=== PATIENT | female | born 1945 | race Two or more races ===

== ENCOUNTER 2022-07-12 14:52 | Emergency (ER) | payer MEDICARE, MEDICAID ==
[~2022-07-12] VITALS: Ht 157.5 cm; Wt 74.0 kg
[2022-07-12 15:03] VITALS: BP 150/75
[2022-07-12] MEDS ORDERED: ACET-1158 PO (19:38)
[2022-07-12] MEDS ORDERED: ONDANSETRON ODT 4 MG TAB PO ONE (19:45)
[2022-07-12] MEDS ORDERED: HYDROcodone-ACET 5/325MG TAB PO ONE (19:45)
== END 2022-07-12 20:06 | disposition home or self-care (01) ==
LOC: ER 14:52
DX: S20.01XA Contusion of right breast, initial encounter (principal); W18.09XA Striking against other object with subsequent fall, initial encounter; Y93.89 Activity, other specified; Y92.89 Other specified places as the place of occurrence of the external cause; Y99.8 Other external cause status
CPT/HCPCS: 71250; 99284; Q0162

== ENCOUNTER 2022-07-23 22:02 | Emergency (ER) | payer MEDICARE, MEDICAID ==
[~2022-07-23] VITALS: Ht 61 cm; Wt 74.6 kg
[~2022-07-23 22:02] MED LIST: ACET-1158 PO
[2022-07-23 23:26] LABS: Eosinophils # (auto) 0.2 10 ^3/uL (0-0.8); Hemoglobin 11.1 g/dL (12.2-16.2)
[2022-07-23 23:28] LABS: Basophils # (auto) 0 10 ^3/uL (0-0.2); Basophils % (auto) 0.5 % (0.0-2.0); Eosinophils % (auto) 1.7 % (0.0-7.0); Hematocrit 33.5 % (36.0-46.0); Lymphocytes # (auto) 1.6 10 ^3/uL (0.4-5.4); Lymphocytes % (auto) 16.2 % (10.0-50.0); Mean Corpuscular Hemoglobin 24.8 pg (28.0-32.0); Mean Corpuscular Hgb Conc. 33.1 g/dL (32.0-36.0); Mean Corpuscular Volume 74.8 fL (80.0-100.0); Monocytes # (auto) 0.5 10 ^3/uL (0-1.3); Monocytes % (auto) 5.5 % (0.0-12.0); Neutrophils # (auto) 7.5 10 ^3/uL (1.6-8.6); Neutrophils % (auto) 76.1 % (37.0-80.0); Red Blood Cells 4.47 10^6/uL (4.0-5.20); Red Cell Distribution Width 18.9 % (11.8-14.3); White Blood Cell 9.8 10^3/uL (4.4-10.8)
[2022-07-23 23:33] LABS: Albumin 3.3 g/dL (3.4-5.0); Calcium 8.6 mg/dL (8.5-10.1); Potassium 3.1 mmol/L (3.5-5.1)
[2022-07-23 23:37] LABS: Bilirubin, Total 0.1 mg/dL (0.2-1.0); Total Protein 7.5 g/dL (6.4-8.2)
[2022-07-24 04:40] VITALS: BP 139/61
[2022-07-24 06:47] LABS: Urine Bacteria NONE SEEN /hpf (None Seen); Urine Blood Negative /uL (Negative); Urine Hyaline Cast FEW /lpf (0 - 2); Urine Mucus FEW (None Seen); Urine Specific Gravity 1.022 (1.001-1.035); Urine WBC 5 /hpf (0 - 5)
[2022-07-24] MEDS ORDERED: POTASSIUM EFFERVESENT TAB 25 MEQ PO ONE (07:00)
== END 2022-07-24 06:57 | disposition left against medical advice (07) ==
LOC: ER 22:02
DX: D64.9 Anemia, unspecified (principal); E87.6 Hypokalemia; E86.0 Dehydration; R79.89 Other specified abnormal findings of blood chemistry; Z90.710 Acquired absence of both cervix and uterus
CPT/HCPCS: 36415; 74176; 80053; 81001; 85025

== ENCOUNTER → 2023-01-07 | Emergency (ER) | payer MEDICARE, MEDICAID ==
[~2023-01-07] VITALS: Ht 160 cm; Wt 73.9 kg
[~2023-01-07] MED LIST changes: -ACET-1158 PO; +ACET500T58 PO; +CEPH500T PO; +CEPHALEXIN 250 MG CAP PO ONE
[2023-01-07 20:48] LABS: Urine Bacteria NONE SEEN /hpf (None Seen); Urine Blood Negative /uL (Negative); Urine Clarity Clear (Clear); Urine Color Colorless (Yellow); Urine Mucus FEW (None Seen); Urine Protein, UAD Negative (Negative); Urine Urobilinogen Normal (Negative); Urine WBC 3 /hpf (0 - 5)
[2023-01-07 21:11] VITALS: BP 160/91; PULSE 77; RESP 16; O2SAT 97
[2023-01-07 22:21] LABS: Basophils # (auto) 0.1 10 ^3/uL (0-0.2); Eosinophils # (auto) 0.4 10 ^3/uL (0-0.8); Lymphocytes # (auto) 2.1 10 ^3/uL (0.4-5.4); Monocytes # (auto) 0.6 10 ^3/uL (0-1.3); White Blood Cell 8.1 10^3/uL (4.4-10.8)
[2023-01-07 22:22] LABS: Basophils % (auto) 1.1 % (0.0-2.0); Eosinophils % (auto) 4.4 % (0.0-7.0); Hematocrit 34.1 % (36.0-46.0); Hemoglobin 10.8 g/dL (12.2-16.2); Lymphocytes % (auto) 26.5 % (10.0-50.0); Mean Corpuscular Hemoglobin 24.7 pg (28.0-32.0); Mean Corpuscular Hgb Conc. 31.8 g/dL (32.0-36.0); Mean Corpuscular Volume 77.6 fL (80.0-100.0); Monocytes % (auto) 7.1 % (0.0-12.0); Neutrophils # (auto) 4.9 10 ^3/uL (1.6-8.6); Neutrophils % (auto) 60.9 % (37.0-80.0); Red Blood Cells 4.39 10^6/uL (4.0-5.20); Red Cell Distribution Width 19.6 % (11.8-14.3)
[2023-01-07 22:23] LABS: Alanine Aminotransferase 15 U/L (7-40); Albumin 4.1 g/dL (3.2-4.8); Alkaline Phosphatase 101 U/L (46-116); Anion Gap 5.9 (5-15); Aspartate Aminotransferase 19 U/L (13-40); BUN/Creatinine Ratio 21.3 (10.0-20.0); Bilirubin, Total 0.2 mg/dL (0.2-1.0); Blood Urea Nitrogen 13 mg/dL (9-23); Carbon Dioxide 28.1 mmol/L (20-30); Chloride 107 mmol/L (98-107); Glucose 93 mg/dL (74-106); Potassium 3.4 mmol/L (3.5-5.1); Sodium 141 mmol/L (136-145); Total Protein 6.9 g/dL (5.7-8.2)
== END | disposition left against medical advice (07) ==
LOC: ER 20:27
DX: R30.0 Dysuria (principal); M25.562 Pain in left knee; Z90.710 Acquired absence of both cervix and uterus
CPT/HCPCS: 36415; 73560; 74176; 80053; 81001; 85025

== ENCOUNTER 2024-11-08 16:21 | Inpatient (IN) | payer MEDICARE, MEDICAID ==
[~2024-11-08] VITALS: Ht 157.5 cm; Wt 64.5 kg
[~2024-11-08 16:21] MED LIST changes: -CEPHALEXIN 250 MG CAP PO ONE
--- NOTE | 2024-11-08 18:14 | ED.PDOC ---
History of Present Illness HPI Comments 79-year-old female with a history of cardiac arrhythmia brought in by self complaining of nausea, vomiting, fever and lower abdominal pain for the last 3 days, associated with dysuria. She denies diarrhea or constipation. At triage, patient was noted to have temperature 100.7 and heart rate 118. Chief Complaint: Nausea/Vomiting Time Seen by MD: 16:23 Allergies: Coded Allergies: NO KNOWN ALLERGIES (Unverified , 07/12/22) Home Meds No Active Prescriptions or Reported Meds Information Source: Patient Mode of Arrival: Ambulatory Past Medical History Past Medical History (Other): Cardiac arrhythmia Surgical History: Hernia Repair, Hysterectomy Surgical History (Other): Hip replacement, back, neck and shoulder surgery EMBOSSOGRAPH OPERATOR History: No Pertinent EMBOSSOGRAPH OPERATOR History Family History Family History: Reviewed,noncontributory to illness Social History Smoker: Non-Smoker Alcohol: Denies ETOH Use Drugs: Denies Drug Use Lives In: Home All Other Systems: Reviewed and Negative (Comprehensive systems review obtained and negative except for what is stated in the HPI.) Physical Exam General Appearance: Mild Distress HEENT: Other (Pupils and face symmetric. Dry mucous membranes.) Neck: Full Range of Motion, Normal Inspection Respiratory: Lungs Clear, No Accessory Muscle Use, No Respiratory Distress, Normal Breath Sounds Cardiovascular: No Edema, No JVD, Tachycardia Breast Exam: Deferred Gastrointestinal: RLQ, Soft, Suprapubic, Tenderness Genitalia: Deferred Pelvic: Deferred Rectal: Deferred Extremities: Normal inspection, Normal range of motion, Non-tender, No pedal edema Neurologic: Alert (Oriented x4), Normal Affect, Normal Mood, Other (Ambulatory) Cerebellar Function: NOT DONE Reflexes: NOT DONE Skin: Dry, Normal Color, Warm Lymphatic: NOT DONE Was a procedure done? Was a procedure done?: No Differential Dx Considerations may include: UTI, sepsis, enteritis, diverticular disease, colitis, appendicitis, bowel obstruction, ischemic bowel, dehydration/hypovolemia, electrolyte imbalance, among others X-Ray, Labs, Meds, VS Vital Signs Date Time Temp Pulse Resp B/P (MAP) Pulse Ox O2 Delivery O2 Flow Rate FiO2 11/08/24 19:43 99.3 11/08/24 19:00 101 18 100/65 11/08/24 18:59 101 16 94 Room Air 11/08/24 18:59 100.7 101 16 100/65 (77) 94 100.7 11/08/24 16:25 100.7 62 18 121/98 (106) 94 100.7 Lab Test 11/08/24 18:30 11/08/24 18:06 Range/Units White Blood Count 19.7 H 4.4-10.8 10^3/uL Red Blood Count 5.08 4.0-5.20 10^6/uL Hemoglobin 15.6 12.2-16.2 g/dL Hematocrit 46.2 H 36.0-46.0 % Mean Corpuscular Volume 91.0 80.0-100.0 fL Mean Corpuscular Hemoglobin 30.7 28.0-32.0 pg Mean Corpuscular Hemoglobin Concent 33.7 32.0-36.0 g/dL Red Cell Distribution Width 13.8 11.8-14.3 % Platelet Count 196 140-450 10^3/uL Mean Platelet Volume 9.3 6.9-10.8 fL Neutrophils (%) (Auto) 90.2 H 37.0-80.0 % Lymphocytes (%) (Auto) 3.9 L 10.0-50.0 % Monocytes (%) (Auto) 5.5 0.0-12.0 % Eosinophils (%) (Auto) 0.0 0.0-7.0 % Basophils (%) (Auto) 0.4 0.0-2.0 % Neutrophils # (Auto) 17.7 H 1.6-8.6 10 ^3/uL Lymphocytes # (Auto) 0.8 0.4-5.4 10 ^3/uL Monocytes # (Auto) 1.1 0-1.3 10 ^3/uL Eosinophils # (Auto) 0 0-0.8 10 ^3/uL Basophils # (Auto) 0.1 0-0.2 10 ^3/uL Nucleated Red Blood Cells 0.0 % Sodium Level 138 136-145 mmol/L Potassium Level 3.6 3.5-5.1 mmol/L Chloride Level 98 98-107 mmol/L Carbon Dioxide Level 29 20-31 mmol/L Anion Gap 11 5-15 Blood Urea Nitrogen 18 9-23 mg/dL Creatinine 1.03 H 0.550-1.02 mg/dL Glomerular Filtration Rate Calc 56 >90 mL/min BUN/Creatinine Ratio 17.5 10.0-20.0 Serum Glucose 121 H 74-106 mg/dL Lactic Acid Level 1.5 0.4-2.0 mmol/L Calcium Level 10.2 8.7-10.4 mg/dL Total Bilirubin 1.0 0.2-1.0 mg/dL Aspartate Amino Transferase (AST) 18 13-40 U/L Alanine Aminotransferase (ALT) < 9 7-40 U/L Alkaline Phosphatase 125 H 46-116 U/L Total Protein 7.8 5.7-8.2 g/dL Albumin 4.6 3.2-4.8 g/dL Thyroid Stimulating Hormone (TSH) 3.68 0.55-4.78 uIU/mL Urine Color Dark-yellow Yellow Urine Clarity Ex.turbid Clear Urine pH 6.0 5.0-9.0 Urine Specific [place] 1.017 1.001-1.035 Urine Protein 1+ H Negative Urine Ketones 1+ H Negative Urine Blood 2+ H Negative /uL Urine Nitrite Negative Negative Urine Bilirubin Negative Negative Urine Urobilinogen 2 H Negative mg/dL Urine Leukocyte Esterase 3+ Negative /uL Urine RBC 22 0 - 4 /hpf Urine WBC Clumps Present None Seen /hpf Urine Microscopic WBC 900 H 0-5 /HPF Urine Squamous Epithelial Cells Mod <5 /hpf Urine Bacteria Mod H None Seen /hpf Urine Mucus Few None Seen Urine Glucose Normal Normal mg/dL Current Medications Medications (Trade) Dose Ordered Sig/Taurus Route Start Time Stop Time Status Last Admin Sodium Chloride 2,000 ml @ 1,000 mls/hr Q2H ONCE IV 11/08/24 18:00 11/08/24 19:59 DC 11/08/24 18:59 Ondansetron HCl (Zofran) 4 mg ONCE ONCE IV 11/08/24 18:00 11/08/24 18:03 DC 11/08/24 19:01 Morphine Sulfate 4 mg ONCE ONCE IV 11/08/24 18:00 11/08/24 18:03 DC 11/08/24 19:00 Ceftriaxone Sodium/Dextrose 50 ml @ 50 mls/hr ONCE ONCE IV 11/08/24 18:00 11/08/24 18:59 DC 11/08/24 18:58 Acetaminophen (Tylenol Tablet Or Capsule) 1,000 mg ONCE ONCE PO 11/08/24 18:15 11/08/24 19:05 DC 11/08/24 19:43 PROCEDURE(s): ABPL - CT AB PEL WO CON-NO ORAL OR IV REASON: low abd pain n/v ORDER NUMBER(s): [id number], ACCESSION NUMBER(s): [id number] Exam: CT CT AB PEL WO CON-NO ORAL OR IV History: low abd pain n/v Comparison Study: CT CT AB PEL WO CON-NO ORAL OR IV on DOS: 01/07/23, CT CT AB PEL WO CON-NO ORAL OR IV on DOS: 07/24/22 Technique: Multidetector spiral CT of the abdomen was performed from lung bases to pubic symphysis. Imaging was performed without IV contrast. Axial, coronal and sagittal multiplanar reformats were obtained from the axial data set by the technologist. Radiation Dose : 1. Abdomen/Pelvis: CTDIvol 8 mGy, DLP 432 mGy*cm. Findings: Evaluation of solid organs is limited due to lack of intravenous contrast use. Lung Bases: No acute or significant lung base finding. Normal heart size. No pleural or pericardial effusion. Liver: The liver is normal in size. No focal lesions. Gallbladder and Biliary Tree: Cholelithiasis noted without secondary findings of cholecystitis or biliary obstruction. Spleen: Unremarkable Pancreas: The pancreas is grossly normal in appearance. Adrenal Glands: Unremarkable Kidneys: Kidneys are grossly normal without calculi or hydronephrosis. Bladder: Grossly unremarkable for degree of distention. Bowel: The stomach is grossly normal in appearance. Small bowel and colon are normal in caliber and distribution. Colonic diverticulosis without evidence of diverticulitis. The appendix is not visualized; however, no secondary findings of acute appendicitis identified. Ascites: Absent Lymphadenopathy: No mesenteric, retroperitoneal or periportal lymphadenopathy. Abdominal Wall and Mesentery: Unremarkable. Vasculature: The visualized abdominal aorta is normal in size and caliber. Evaluation of abdominal and pelvic vessels is limited due to lack of intravenous contrast. Pelvic Organs: Unremarkable Musculoskeletal: No aggressive focal bony lesions, acute fractures or dislocation. Status post left hip arthroplasty. Surgical fixation hardware seen in the lower lumbar spine. IMPRESSION: 1. No acute abdominal or pelvic findings. 2. Colonic diverticulosis without evidence of diverticulitis. 3. Cholelithiasis Radiation optimization: All CT scans at this facility use at least one of these dose optimization techniques: automated exposure control mA and/or kV adjustment per patient size (includes targeted exams where dose is matched to clinical indication) or iterative reconstruction. X-Ray, Labs, Meds, VS Comment 79-year-old female with a history of cardiac arrhythmia complaining of abdominal pain, nausea, vomiting and dysuria Vitals Remarkable for temperature 100.7, heart rate 118 Exam remarkable for lower abdominal tenderness and tachycardia Rhythm strip independently interpreted by me: Sinus tach, rate 118, no ectopy. CT abdomen and pelvis IMPRESSION: 1. No acute abdominal or pelvic findings. 2. Colonic diverticulosis without evidence of diverticulitis. 3. Cholelithiasis CBC remarkable for WBC 19.7, CMP remarkable for creatinine 1.03, lactate normal, UA abnormal consistent with UTI urine Patient treated with the following in the ED: 2 L 0.9 normal saline IV bolus, morphine 4 mg IV, Zofran 4 mg IV, Rocephin 2 g IV, Tylenol 1 g p.o. On re-evaluation, patient states pain has improved. She is no longer tachycardic or febrile. Plan is to admit the patient for IV antibiotics and emesis control Time of 1ST Reevaluation: 18:13 Reevaluation 1ST: Unchanged Patient Education/Counseling: Diagnosis, Treatment, Need For Follow Up Family Education/Counseling: No Family Present SEPSIS Sepsis Screen Date sepsis recognized/suspect: Nov 08, 2024 Time Sepsis recognized/suspect: 172 Recent Procedure: No On Antibiotic Therapy: No Respiratory Rate >20: No Heart Rate >90: No Temp<36 C (96.8 F) or >38.3 C: Yes SBP <90 or MAP <65 mmHG: No New Acute Mental Status Change: No Is the patient on CPAP, BIPAP,: No SEPSIS EXCLUSION NOTE: Sepsis Exclusion Note: Patient presents with SIRS criteria, but the SIRS response is attributed to [hypovolemia and pain ]. Sepsis bundle is not initiated at this time, due to t his reason. Further management will focus on the treatment of the above condition (s). Physician Orders Blood Culture (11/08/24 18:00) Urine Bacterial Culture (11/08/24 18:00) Ct Ab Pel Wo Con-No Oral Or Iv (11/08/24 18:00) Admit (11/08/24 19:53) Vital Signs Date Time Temp Pulse Resp B/P (MAP) Pulse Ox O2 Delivery O2 Flow Rate FiO2 11/08/24 19:43 99.3 11/08/24 19:00 101 18 100/65 11/08/24 18:59 101 16 94 Room Air 11/08/24 18:59 100.7 101 16 100/65 (77) 94 100.7 11/08/24 16:25 100.7 62 18 121/98 (106) 94 100.7 Laboratory Tests Test 11/08/24 18:30 Lactic Acid Level 1.5 mmol/L (0.4-2.0) White Blood Count 19.7 10^3/uL (4.4-10.8) H Medications Medications Dose Ordered Sig/Taurus Route Start Time Stop Time Status Last Admin Dose Admin Acetaminophen 1,000 mg ONCE ONCE PO 11/08/24 18:15 11/08/24 19:05 DC 11/08/24 19:43 Ceftriaxone Sodium/Dextrose 50 ml @ 50 mls/hr ONCE ONCE IV 11/08/24 18:00 11/08/24 18:59 DC 11/08/24 18:58 Morphine Sulfate 4 mg ONCE ONCE IV 11/08/24 18:00 11/08/24 18:03 DC 11/08/24 19:00 Ondansetron HCl 4 mg ONCE ONCE IV 11/08/24 18:00 11/08/24 18:03 DC 11/08/24 19:01 Sodium Chloride 2,000 ml @ 1,000 mls/hr Q2H ONCE IV 11/08/24 18:00 11/08/24 19:59 DC 11/08/24 18:59 Departure 1 Departure Time of Disposition: 19:37 Impression: Primary Impression: Nausea and vomiting Additional Impressions: UTI (urinary tract infection) Dehydration Disposition: 09 ADMITTED INPATIENT Admit to: Med Surg Condition: Guarded e-Prescriptions No Active Prescriptions or Reported Meds Critical Care Note Critical Care Time?: Yes (35 min-critical care time only) Critical care comment: Critical care time including multiple bedside re-evaluations, review of lab and imaging studies, and discussion of the case with the admitting provider. Patient is high risk for hemodynamic decompensation. Stability Stability form required: No Heart Score Heart Score: Heart Score Response (Comments) Value History N/A 0 EKG N/A 0 Age N/A 0 Risk Factors N/A 0 Troponin N/A 0 Total 0 AU AMISHA WATKINS MD Nov 08, 2024 18:14
[2024-11-08 18:24] LABS: Urine Protein, UAD 1+ (Negative); Urine WBC Clumps PRESENT /hpf (None Seen)
--- NOTE | 2024-11-08 18:38 | DVH ---
Exam: CT CT AB PEL WO CON-NO ORAL OR IV History: low abd pain n/v Comparison Study: CT CT AB PEL WO CON-NO ORAL OR IV on DOS: 01/07/23, CT CT AB PEL WO CON-NO ORAL OR IV on DOS: 07/24/22 Technique: Multidetector spiral CT of the abdomen was performed from lung bases to pubic symphysis. Imaging was performed without IV contrast. Axial, coronal and sagittal multiplanar reformats were ob tained from the axial data set by the technologist. Radiation Dose : 1. Abdomen/Pelvis: CTDIvol 8 mGy, DLP 432 mGy*cm. Findings: Evaluation of solid organs is limited due to lack of intravenous contrast use. Lung Bases: No acute or significant lung base finding. Normal heart size. No pleural or pericardial effusion. Liver: The liver is normal in size. No focal lesions. Gallbladder and Biliary Tree: Cholelithiasis noted without secondary findings of cholecystitis or toby iary obstruction. Spleen: Unremarkable Pancreas: The pancreas is grossly normal in appearance. Adrenal Glands: Unremarkable Kidneys: Kidneys are grossly normal without calculi or hydronephrosis. Bladder: Grossly unremarkable for degree of distention. Bowel: The stomach is grossly normal in appearance. Small bowel and colon are normal in caliber and d istribution. Colonic diverticulosis without evidence of diverticulitis. The appendix is not visualiz ed; however, no secondary findings of acute appendicitis identified. Ascites: Absent Lymphadenopathy: No mesenteric, retroperitoneal or periportal lymphadenopathy. Abdominal Wall and Mesentery: Unremarkable. Vasculature: The visualized abdominal aorta is normal in size and caliber. Evaluation of abdominal a nd pelvic vessels is limited due to lack of intravenous contrast. Pelvic Organs: Unremarkable Musculoskeletal: No aggressive focal bony lesions, acute fractures or dislocation. Status post left h ip arthroplasty. Surgical fixation hardware seen in the lower lumbar spine. IMPRESSION: 1. No acute abdominal or pelvic findings. 2. Colonic diverticulosis without evidence of diverticulitis. 3. Cholelithiasis Radiation optimization: All CT scans at this facility use at least one of these dose optimization jose hniques: automated exposure control mA and/or kV adjustment per patient size (includes targeted exam s where dose is matched to clinical indication) or iterative reconstruction.
[2024-11-08 18:45] LABS: Hematocrit 46.2 % (36.0-46.0); Hemoglobin 15.6 g/dL (12.2-16.2); Mean Corpuscular Hemoglobin 30.7 pg (28.0-32.0); Mean Corpuscular Volume 91.0 fL (80.0-100.0); Nucleated Red Blood Cells % 0.0 %
[2024-11-08] MEDS: cefTRIAXone 2GM/50ML D5W 50 ML IV ONE (18:58)
[2024-11-08] MEDS: SODIUM CHLORIDE 0.9% 2,000 ML IV ONE (18:59)
[2024-11-08] MEDS: MORPHINE SULFATE 4 MG/ML SYR/VIAL IV ONE (19:00)
[2024-11-08] MEDS: ONDANSETRON HCL 4 MG/2 ML VIAL IV ONE (19:01)
[2024-11-08 19:02] LABS: Albumin 4.6 g/dL (3.2-4.8); Anion Gap 11 (5-15); BUN/Creatinine Ratio 17.5 (10.0-20.0); Bilirubin, Total 1.0 mg/dL (0.2-1.0); Blood Urea Nitrogen 18 mg/dL (9-23); Calcium 10.2 mg/dL (8.7-10.4); Carbon Dioxide 29 mmol/L (20-31); Chloride 98 mmol/L (98-107); Potassium 3.6 mmol/L (3.5-5.1); Sodium 138 mmol/L (136-145); Total Protein 7.8 g/dL (5.7-8.2)
[2024-11-08 19:03] LABS: Alanine Aminotransferase < 9 U/L (7-40); Alkaline Phosphatase 125 U/L (46-116); Glucose 121 mg/dL (74-106)
[2024-11-08] MEDS: ACETAMINOPHEN 500 MG TAB or CAP PO ONE (19:43)
--- NOTE | 2024-11-08 20:22 | DVHHP2 ---
History of Present Illness Reason for Visit: Lower abdominal pain History of Present Illness 79-year-old female presents for evaluation of lower abdominal pain. Patient reports a three day history of developing lower abdominal pain with associated dysuria and chills. She also reports episodes of nausea without emesis. No oth er acute complaints reported. Past Medical History ? Cardiac arrhythmia Review of Systems Review of Systems Review of systems are currently negative otherwise addressed in HPI. Allergies: Coded Allergies: NO KNOWN ALLERGIES (Unverified , 07/12/22) Exam Vital Signs Vital Signs Date Time Temp Pulse Resp B/P (MAP) Pulse Ox O2 Delivery O2 Flow Rate FiO2 11/08/24 19:43 99.3 11/08/24 19:00 101 18 100/65 11/08/24 18:59 94 Room Air Exam Gen: 79-year-old female in mild distress Skin: Warm, dry, normal color and texture, no rash. HEENT: Normocephalic atraumatic, mucous membranes moist and pink. Neck: Cervical and supraclavicular nodes normal without enlargement, trachea is midline, thyroid gland is normal without masses. Pulmonary: Clear to auscultation and percussion bilaterally. Cardiac: Regular rate and rhythm. No murmur Abdomen: Soft, or abdominal tenderness, nondistended, bowel sounds present all 4 quadrants, no guarding, no rigidity, no organomegaly. Extremities: No cyanosis, clubbing, no edema Neuro: Cranial nerves II through XII grossly intact, normal affect and speech, no focal motor deficits. Labs/Xrays ORDERING PHYSICIAN: AMISHA MOORE MD PROCEDURE(s): ABPL - CT AB PEL WO CON-NO ORAL OR IV REASON: low abd pain n/v ORDER NUMBER(s): [id number], ACCESSION NUMBER(s): [id number] Exam: CT CT AB PEL WO CON-NO ORAL OR IV History: low abd pain n/v Comparison Study: CT CT AB PEL WO CON-NO ORAL OR IV on DOS: 01/07/23, CT CT AB PEL WO CON-NO ORAL OR IV on DOS: 07/24/22 Technique: Multidetector spiral CT of the abdomen was performed from lung bases to pubic symphysis. Imaging was performed without IV contrast. Axial, coronal and sagittal multiplanar reformats were obtained from the axial data set by the technologist. Radiation Dose : 1. Abdomen/Pelvis: CTDIvol 8 mGy, DLP 432 mGy*cm. Findings: Evaluation of solid organs is limited due to lack of intravenous contrast use. Lung Bases: No acute or significant lung base finding. Normal heart size. No pleural or pericardial effusion. Liver: The liver is normal in size. No focal lesions. Gallbladder and Biliary Tree: Cholelithiasis noted without secondary findings of cholecystitis or biliary obstruction. Spleen: Unremarkable Pancreas: The pancreas is grossly normal in appearance. Adrenal Glands: Unremarkable Kidneys: Kidneys are grossly normal without calculi or hydronephrosis. Bladder: Grossly unremarkable for degree of distention. Bowel: The stomach is grossly normal in appearance. Small bowel and colon are normal in caliber and distribution. Colonic diverticulosis without evidence of diverticulitis. The appendix is not visualized; however, no secondary findings of acute appendicitis identified. Ascites: Absent Lymphadenopathy: No mesenteric, retroperitoneal or periportal lymphadenopathy. Abdominal Wall and Mesentery: Unremarkable. Vasculature: The visualized abdominal aorta is normal in size and caliber. Evaluation of abdominal and pelvic vessels is limited due to lack of intravenous contrast. Pelvic Organs: Unremarkable Musculoskeletal: No aggressive focal bony lesions, acute fractures or dislocation. Status post left hip arthroplasty. Surgical fixation hardware seen in the lower lumbar spine. IMPRESSION: 1. No acute abdominal or pelvic findings. 2. Colonic diverticulosis without evidence of diverticulitis. 3. Cholelithiasis Radiation optimization: All CT scans at this facility use at least one of these dose optimization techniques: automated exposure control mA and/or kV adjustment per patient size (includes targeted exams where dose is matched to clinical indication) or iterative reconstruction. Labs Test 11/08/24 18:30 11/08/24 18:06 Range/Units White Blood Count 19.7 H 4.4-10.8 10^3/uL Red Blood Count 5.08 4.0-5.20 10^6/uL Hemoglobin 15.6 12.2-16.2 g/dL Hematocrit 46.2 H 36.0-46.0 % Mean Corpuscular Volume 91.0 80.0-100.0 fL Mean Corpuscular Hemoglobin 30.7 28.0-32.0 pg Mean Corpuscular Hemoglobin Concent 33.7 32.0-36.0 g/dL Red Cell Distribution Width 13.8 11.8-14.3 % Platelet Count 196 140-450 10^3/uL Mean Platelet Volume 9.3 6.9-10.8 fL Neutrophils (%) (Auto) 90.2 H 37.0-80.0 % Lymphocytes (%) (Auto) 3.9 L 10.0-50.0 % Monocytes (%) (Auto) 5.5 0.0-12.0 % Eosinophils (%) (Auto) 0.0 0.0-7.0 % Basophils (%) (Auto) 0.4 0.0-2.0 % Neutrophils # (Auto) 17.7 H 1.6-8.6 10 ^3/uL Lymphocytes # (Auto) 0.8 0.4-5.4 10 ^3/uL Monocytes # (Auto) 1.1 0-1.3 10 ^3/uL Eosinophils # (Auto) 0 0-0.8 10 ^3/uL Basophils # (Auto) 0.1 0-0.2 10 ^3/uL Nucleated Red Blood Cells 0.0 % Sodium Level 138 136-145 mmol/L Potassium Level 3.6 3.5-5.1 mmol/L Chloride Level 98 98-107 mmol/L Carbon Dioxide Level 29 20-31 mmol/L Anion Gap 11 5-15 Blood Urea Nitrogen 18 9-23 mg/dL Creatinine 1.03 H 0.550-1.02 mg/dL Glomerular Filtration Rate Calc 56 >90 mL/min BUN/Creatinine Ratio 17.5 10.0-20.0 Serum Glucose 121 H 74-106 mg/dL Lactic Acid Level 1.5 0.4-2.0 mmol/L Calcium Level 10.2 8.7-10.4 mg/dL Total Bilirubin 1.0 0.2-1.0 mg/dL Aspartate Amino Transferase (AST) 18 13-40 U/L Alanine Aminotransferase (ALT) < 9 7-40 U/L Alkaline Phosphatase 125 H 46-116 U/L Total Protein 7.8 5.7-8.2 g/dL Albumin 4.6 3.2-4.8 g/dL Urine Color Dark-yellow Yellow Urine Clarity Ex.turbid Clear Urine pH 6.0 5.0-9.0 Urine Specific [place] 1.017 1.001-1.035 Urine Protein 1+ H Negative Urine Ketones 1+ H Negative Urine Blood 2+ H Negative /uL Urine Nitrite Negative Negative Urine Bilirubin Negative Negative Urine Urobilinogen 2 H Negative mg/dL Urine Leukocyte Esterase 3+ Negative /uL Urine RBC 22 0 - 4 /hpf Urine WBC Clumps Present None Seen /hpf Urine Microscopic WBC 900 H 0-5 /HPF Urine Squamous Epithelial Cells Mod <5 /hpf Urine Bacteria Mod H None Seen /hpf Urine Mucus Few None Seen Urine Glucose Normal Normal mg/dL SEPSIS Sepsis Screen Date sepsis recognized/suspect: Nov 08, 2024 Time Sepsis recognized/suspect: 1719 Recent Procedure: No On Antibiotic Therapy: No Respiratory Rate >20: No Heart Rate >90: No Temp<36 C (96.8 F) or >38.3 C: Yes SBP <90 or MAP <65 mmHG: No New Acute Mental Status Change: No Is the patient on CPAP, BIPAP,: No Physician Orders Blood Culture (11/08/24 18:00) Urine Bacterial Culture (11/08/24 18:00) Ct Ab Pel Wo Con-No Oral Or Iv (11/08/24 18:00) Admit (11/08/24 19:53) Vital Signs Date Time Temp Pulse Resp B/P (MAP) Pulse Ox O2 Delivery O2 Flow Rate FiO2 11/08/24 19:43 99.3 11/08/24 19:00 101 18 100/65 11/08/24 18:59 101 16 94 Room Air 11/08/24 18:59 100.7 101 16 100/65 (77) 94 100.7 11/08/24 16:25 100.7 62 18 121/98 (106) 94 100.7 Laboratory Tests Test 11/08/24 18:30 Lactic Acid Level 1.5 mmol/L (0.4-2.0) White Blood Count 19.7 10^3/uL (4.4-10.8) H Medications Medications Dose Ordered Sig/Taurus Route Start Time Stop Time Status Last Admin Dose Admin Acetaminophen 1,000 mg ONCE ONCE PO 11/08/24 18:15 11/08/24 19:05 DC 11/08/24 19:43 1,000 MG Ceftriaxone Sodium/Dextrose 50 ml @ 50 mls/hr ONCE ONCE IV 11/08/24 18:00 11/08/24 18:59 DC 11/08/24 18:58 50 MLS/HR Morphine Sulfate 4 mg ONCE ONCE IV 11/08/24 18:00 11/08/24 18:03 DC 11/08/24 19:00 4 MG Ondansetron HCl 4 mg ONCE ONCE IV 11/08/24 18:00 11/08/24 18:03 DC 11/08/24 19:01 4 MG Sodium Chloride 2,000 ml @ 1,000 mls/hr Q2H ONCE IV 11/08/24 18:00 11/08/24 19:59 DC 11/08/24 18:59 1,000 MLS/HR Assessment/Plan Assessment/Plan Assessment Acute cystitis Leukocytosis Plan Admit the patient to [facility] to the hospitalist Steffany Pain management Resume home medications Continue treatment per orders. Plan discussed with: Patient My Orders Orders - SHERON DALEY Procedure Category Date Status Time Admit ADMIT 11/08/24 Transmitted 19:53 Date of Service: Nov 08, 2024 Billing Provider: SHERON DALEY Common Visit Codes: [id number] INP/OBS CARE (MOD) SHERON DALEY Nov 08, 2024 20:22
[2024-11-08] MEDS: ONDANSETRON HCL 4 MG/2 ML VIAL IV PRN (21:50)
[2024-11-08] MEDS: PHENAZOPYRIDINE HCL 100 MG TAB PO SCH (22:54)
[2024-11-08 23:44] VITALS: BP 122/76; PULSE 96; RESP 18; TEMP 100.2; O2SAT 93
[2024-11-08] MEDS: ACETAMINOPHEN 325 MG TAB PO PRN (23:54)
[2024-11-09] VITALS (8 sets, daily range): BP systolic 112–126; BP diastolic 59–75; PULSE 64–89; RESP 17–18; TEMP 98–99.9; O2SAT 93–97
[2024-11-09 07:08] LABS: Anion Gap 8 (5-15); Carbon Dioxide 28 mmol/L (20-31); Chloride 104 mmol/L (98-107); Hematocrit 38.9 % (36.0-46.0); Hemoglobin 13.1 g/dL (12.2-16.2); Mean Corpuscular Hemoglobin 30.3 pg (28.0-32.0); Mean Corpuscular Volume 90.3 fL (80.0-100.0); Nucleated Red Blood Cells % 0.0 %; Sodium 140 mmol/L (136-145)
[2024-11-09 07:09] LABS: Calcium 9.2 mg/dL (8.7-10.4)
[2024-11-09 07:14] LABS: BUN/Creatinine Ratio 22.5 (10.0-20.0); Blood Urea Nitrogen 16 mg/dL (9-23); Glucose 96 mg/dL (74-106)
[2024-11-09 07:16] LABS: Potassium 3.4 mmol/L (3.5-5.1)
--- NOTE | 2024-11-09 10:51 | DVHPN2 ---
Subjective Patient reports having dyspnea, suprapubic pain, and chest pain. Reviewed: Care Plan, H&P, Labs Changes from previous H/P or p: No Changes General: Per HPI Objective Vitals Vital Signs Date Time Temp Pulse Resp B/P (MAP) Pulse Ox O2 Delivery O2 Flow Rate FiO2 11/09/24 09:00 98.1 72 18 119/74 (89) 97 98.1 11/08/24 23:44 Nasal Cannula* 2 28 Intake/Output Intake and Output 11/09/24 07:00 Intake Total 2300 ml Balance 2300 ml Intake Oral 250 ml IV Total 2050 ml # Voids 1 General Appearance: Alert, Oriented X3, Cooperative, mild distress HEENT: Atraumatic, PERRLA Lungs: Clear to auscultation, Normal air movement Cardiovascular: Normal S1, Normal S2 Abdomen: Normal bowel sounds, Soft, No hepatospenomegaly Musculoskeletal: Normal sensory function, Normal motor function Neuro: Normal gait, Normal speech Skin: Dry, Intact Psych/Mental Status: Mental status NL, Mood NL Medications Current Medications Medications Dose Ordered Sig/Taurus Route Start Time Stop Time Status Last Admin Dose Admin Ceftriaxone Sodium 50 ml @ 100 mls/hr DAILY@09 IV 11/09/24 09:00 Acetaminophen/ Hydrocodone Bitart 1 tab Q4HP PRN PO 11/08/24 20:15 Ondansetron HCl 4 mg Q4HP PRN IV 11/08/24 20:15 11/08/24 21:50 4 MG Acetaminophen 650 mg Q6HP PRN PO 11/08/24 20:15 11/08/24 23:54 650 MG Phenazopyridine HCl 100 mg BID PO 11/08/24 22:00 11/08/24 22:54 100 MG Laboratory Results Laboratory Tests 11/09/24 06:31 Chemistry Test 11/08/24 18:30 11/09/24 06:31 Albumin 4.6 g/dL (3.2-4.8) Calcium Level 10.2 mg/dL (8.7-10.4) 9.2 mg/dL (8.7-10.4) Total Protein 7.8 g/dL (5.7-8.2) LFT Test 11/08/24 18:30 Alanine Aminotransferase (ALT) < 9 U/L (7-40) Alkaline Phosphatase 125 U/L (46-116) H Aspartate Amino Transferase (AST) 18 U/L (13-40) Total Bilirubin 1.0 mg/dL (0.2-1.0) HgA1c, TSH Test 11/08/24 18:30 Thyroid Stimulating Hormone (TSH) 3.68 uIU/mL (0.55-4.78) Urinalysis Test 11/08/24 18:06 Urine Color Dark-yellow (Yellow) Urine Clarity Ex.turbid (Clear) Urine pH 6.0 (5.0-9.0) Urine Specific [place] 1.017 (1.001-1.035) Urine Protein 1+ (Negative) H Urine Ketones 1+ (Negative) H Urine Blood 2+ /uL (Negative) H Urine Nitrite Negative (Negative) Urine Bilirubin Negative (Negative) Urine Urobilinogen 2 mg/dL (Negative) H Urine Leukocyte Esterase 3+ /uL (Negative) Urine RBC 22 /hpf (0 - 4) Urine WBC Clumps Present /hpf (None Seen) Urine Microscopic WBC 900 /HPF (0-5) H Urine Squamous Epithelial Cells Mod /hpf (<5) Urine Bacteria Mod /hpf (None Seen) H Urine Mucus Few (None Seen) Urine Glucose Normal mg/dL (Normal) Microbiology Microbiology Date/Time Source Procedure Growth Status 11/08/24 18:15 Blood Blood Culture - Preliminary Resulted 11/08/24 18:06 Voided Urine Urine Culture - Preliminary Resulted Labs and/or images reviewed: Labs reviewed by me, Image(s) reviewed by me Assessment/Plan Assessment/Plan Impression: -sepsis with Gram-negative rods in the blood -complicated cystitis -pleuritic type of chest pain Plan: -two-view chest x-ray -white blood cell count improving. Patient also having improvement with fevers. Continue Rocephin -blood and urine cultures pending -PUD prophylaxis -pain management -repeat labs in a.m. Total time spent with patient discussing and formulating plan of care: 35 minutes. This medical document was created using an electronic medical record system with [employer] system. Although this document has been carefully reviewed, there may still be some phonetic and typographical errors. These areas are purely typographical due to imperfections of the software programs, and do not reflect any compromise in the patient's medical care. Plan discussed with: Patient, Other (RN) My Orders Orders - FELA LUDWIG NP Procedure Category Date Status Time Sod Chl 0.9%/ Kcl PHA 11/09/24 In Process 20meq 09:45 Date of Service: Nov 09, 2024 Billing Provider: FELA LUDWIG NP Common Visit Codes: [id number] INP/OBS CARE(HIGH) FELA LUDWIG NP Nov 09, 2024 10:51
[2024-11-09] MEDS: cefTRIAXone 1GM/50ML D5W 50 ML IV SCH (10:57)
[2024-11-09] MEDS: SOD CHL 0.9%/ KCL 20MEQ 1,000 ML IV ONE (11:03)
--- NOTE | 2024-11-09 12:14 | DVH ---
EXAM: XY CHEST TWO VIEWS ROUTINE CLINICAL HISTORY: chest pain, dyspnea COMPARISON: None TECHNIQUE: Frontal and lateral view of the chest was obtained FINDINGS: Lines and Tubes: None Lungs: No focal consolidation. Pleura: No effusion. No pneumothorax. Cardiomediastinal contours: Unremarkable Bones: No acute osseous abnormality. IMPRESSION: No acute cardiopulmonary disease.
[2024-11-10] VITALS (8 sets, daily range): BP systolic 123–137; BP diastolic 71–90; PULSE 60–75; RESP 16–20; TEMP 97.9–98.4; O2SAT 95–100
[2024-11-10 06:51] LABS: Hematocrit 40.3 % (36.0-46.0); Hemoglobin 13.6 g/dL (12.2-16.2); Mean Corpuscular Hemoglobin 31.0 pg (28.0-32.0); Mean Corpuscular Volume 91.6 fL (80.0-100.0); Nucleated Red Blood Cells % 0.1 %
[2024-11-10 06:53] LABS: Anion Gap 7 (5-15); Carbon Dioxide 31 mmol/L (20-31); Chloride 102 mmol/L (98-107); Sodium 140 mmol/L (136-145)
[2024-11-10 06:54] LABS: Calcium 9.5 mg/dL (8.7-10.4); Potassium 3.3 mmol/L (3.5-5.1)
[2024-11-10 06:59] LABS: BUN/Creatinine Ratio 19.3 (10.0-20.0); Blood Urea Nitrogen 11 mg/dL (9-23); Glucose 88 mg/dL (74-106)
[2024-11-10] MEDS: HYDROcodone-ACET 5/325MG TAB PO PRN (09:52)
[2024-11-10] MEDS ORDERED: POTASSIUM EFFERVESENT TAB 25 MEQ PO ONE (14:15)
--- NOTE | 2024-11-10 14:36 | DVHPN2 ---
Subjective Patient was states that her symptoms have improved. Reviewed: Care Plan, H&P, Labs Changes from previous H/P or p: No Changes General: Per HPI Objective Vitals Vital Signs Date Time Temp Pulse Resp B/P (MAP) Pulse Ox O2 Delivery O2 Flow Rate FiO2 11/10/24 12:27 97.9 73 20 127/74 (91) 95 97.9 11/10/24 08:00 Room Air* 0 21 Intake/Output Intake and Output 11/10/24 07:00 Intake Total 1140 ml Output Total 750 ml Balance 390 ml Intake Oral 1090 ml IV Total 50 ml Output Urine Total 750 ml # Voids 2 General Appearance: Alert, Oriented X3, Cooperative, mild distress HEENT: Atraumatic, PERRLA Lungs: Clear to auscultation, Normal air movement Cardiovascular: Normal S1, Normal S2 Abdomen: Normal bowel sounds, Soft, No hepatospenomegaly Musculoskeletal: Normal sensory function, Normal motor function Neuro: Normal gait, Normal speech Skin: Dry, Intact Psych/Mental Status: Mental status NL, Mood NL Medications Current Medications Medications Dose Ordered Sig/Taurus Route Start Time Stop Time Status Last Admin Dose Admin Ceftriaxone Sodium 50 ml @ 100 mls/hr DAILY@09 IV 11/09/24 09:00 11/10/24 09:51 100 MLS/HR Acetaminophen/ Hydrocodone Bitart 1 tab Q4HP PRN PO 11/08/24 20:15 11/10/24 09:52 1 TAB Ondansetron HCl 4 mg Q4HP PRN IV 11/08/24 20:15 11/08/24 21:50 4 MG Acetaminophen 650 mg Q6HP PRN PO 11/08/24 20:15 11/10/24 06:01 650 MG Phenazopyridine HCl 100 mg BID PO 11/08/24 22:00 11/10/24 09:51 100 MG Laboratory Results Laboratory Tests 11/10/24 06:18 Chemistry Test 11/10/24 06:18 Calcium Level 9.5 mg/dL (8.7-10.4) Urinalysis Test 11/08/24 18:06 Urine Color Dark-yellow (Yellow) Urine Clarity Ex.turbid (Clear) Urine pH 6.0 (5.0-9.0) Urine Specific [place] 1.017 (1.001-1.035) Urine Protein 1+ (Negative) H Urine Ketones 1+ (Negative) H Urine Blood 2+ /uL (Negative) H Urine Nitrite Negative (Negative) Urine Bilirubin Negative (Negative) Urine Urobilinogen 2 mg/dL (Negative) H Urine Leukocyte Esterase 3+ /uL (Negative) Urine RBC 22 /hpf (0 - 4) Urine WBC Clumps Present /hpf (None Seen) Urine Microscopic WBC 900 /HPF (0-5) H Urine Squamous Epithelial Cells Mod /hpf (<5) Urine Bacteria Mod /hpf (None Seen) H Urine Mucus Few (None Seen) Urine Glucose Normal mg/dL (Normal) Microbiology Microbiology Date/Time Source Procedure Growth Status 11/08/24 18:30 Blood Blood Culture - Preliminary NO GROWTH AFTER 24 HOURS OF INCUBATION. Resulted 11/08/24 18:06 Voided Urine Urine Culture - Final Complete Labs and/or images reviewed: Labs reviewed by me, Image(s) reviewed by me Assessment/Plan Assessment/Plan Impression: -sepsis with Gram-negative rods in the blood -complicated cystitis -pleuritic type of chest pain -sleep apnea -acute on chronic hypoxic respiratory failure Plan: Events: White blood cell count improving. Patient's symptoms improved. UA contaminated, repeat -potassium replete -white blood cell count improving. Patient also having improvement with fevers. Continue Rocephin -blood and urine cultures pending -PUD prophylaxis -pain management -repeat labs in a.m. -reassess for discharge in a.m. Total time spent with patient discussing and formulating plan of care: 35 minutes. This medical document was created using an electronic medical record system with [employer] dictation system. Although this document has been carefully reviewed, there may still be some phonetic and typographical errors. These areas are purely typographical due to imperfections of the software programs, and do not reflect any compromise in the patient's medical care. Plan discussed with: Patient, Other (RN) My Orders Orders - FELA LUDWIG NP Procedure Category Date Status Time Blood Culture JULIUS 11/10/24 Logged 14:01 Potassium Effervesent PHA 11/10/24 Logged Tab (Klor-Con/Ef) 14:15 Potassium Chl Kofi PHA 11/10/24 Verified KCL 14:45 Urinalysis LAB 11/10/24 Verified 14:33 Basic Metabolic Panel LAB 11/11/24 Verified 04:00 Magnesium LAB 11/11/24 Verified 04:00 Date of Service: Nov 10, 2024 Billing Provider: FELA LUDWIG NP Common Visit Codes: [id number] INP/OBS CARE(HIGH) FELA LUDWIG NP Nov 10, 2024 14:36
[2024-11-10 16:17] LABS: Urine Protein, UAD Negative (Negative)
[2024-11-10] MEDS: POTASSIUM CHLORIDE 60 MEQ, LIDOCAINE 1% (LOCAL ANESTH.) 6 ML in SODIUM CHL 0.9% 500 ML IV ONE (16:59)
[2024-11-11] VITALS (8 sets, daily range): BP systolic 112–163; BP diastolic 59–88; PULSE 49–78; RESP 14–18; TEMP 97.6–98.7; O2SAT 93–100
[2024-11-11 08:39] LABS: Chloride 104 mmol/L (98-107); Potassium 3.6 mmol/L (3.5-5.1); Sodium 143 mmol/L (136-145)
[2024-11-11 08:40] LABS: Anion Gap 7 (5-15); Calcium 9.4 mg/dL (8.7-10.4)
[2024-11-11 08:41] LABS: Carbon Dioxide 32 mmol/L (20-31)
[2024-11-11 08:45] LABS: BUN/Creatinine Ratio 17.0 (10.0-20.0); Glucose 82 mg/dL (74-106)
[2024-11-11 08:46] LABS: Magnesium 1.9 mg/dL (1.6-2.6)
[2024-11-11 08:48] LABS: Blood Urea Nitrogen 8 mg/dL (9-23)
--- NOTE | 2024-11-11 15:39 | DVHPN2 ---
Subjective Patient was states that her symptoms have improved. Reviewed: Care Plan, H&P, Labs Changes from previous H/P or p: No Changes General: Per HPI Objective Vitals Vital Signs Date Time Temp Pulse Resp B/P (MAP) Pulse Ox O2 Delivery O2 Flow Rate FiO2 11/11/24 12:30 97.7 77 14 145/88 (107) 96 97.7 11/11/24 07:43 Room Air* 0 21 Intake/Output Intake and Output 11/11/24 07:00 Intake Total 1375 ml Balance 1375 ml Intake Oral 1325 ml IV Total 50 ml # Voids 6 General Appearance: Alert, Oriented X3, Cooperative, mild distress HEENT: Atraumatic, PERRLA Lungs: Clear to auscultation, Normal air movement Cardiovascular: Normal S1, Normal S2 Abdomen: Normal bowel sounds, Soft, No hepatospenomegaly Musculoskeletal: Normal sensory function, Normal motor function Neuro: Normal gait, Normal speech Skin: Dry, Intact Psych/Mental Status: Mental status NL, Mood NL Medications Current Medications Medications Dose Ordered Sig/Taurus Route Start Time Stop Time Status Last Admin Dose Admin Ceftriaxone Sodium 50 ml @ 100 mls/hr DAILY@09 IV 11/09/24 09:00 11/11/24 08:32 100 MLS/HR Acetaminophen/ Hydrocodone Bitart 1 tab Q4HP PRN PO 11/08/24 20:15 11/10/24 09:52 1 TAB Ondansetron HCl 4 mg Q4HP PRN IV 11/08/24 20:15 11/08/24 21:50 4 MG Acetaminophen 650 mg Q6HP PRN PO 11/08/24 20:15 11/10/24 22:04 650 MG Phenazopyridine HCl 100 mg BID PO 11/08/24 22:00 11/11/24 08:33 100 MG Laboratory Results Laboratory Tests 11/10/24 06:18 11/11/24 08:07 Chemistry Test 11/11/24 08:07 Calcium Level 9.4 mg/dL (8.7-10.4) Magnesium Level 1.9 mg/dL (1.6-2.6) Urinalysis Test 11/08/24 18:06 11/10/24 15:57 Urine WBC Clumps Present /hpf (None Seen) Urine Mucus Few (None Seen) Urine Color Dark-yellow (Yellow) Urine Clarity Clear (Clear) Urine pH 6.5 (5.0-9.0) Urine Specific [place] 1.009 (1.001-1.035) Urine Protein Negative (Negative) Urine Ketones Negative (Negative) Urine Blood Negative /uL (Negative) Urine Nitrite 1+ (Negative) H Urine Bilirubin 1+ (Negative) H Urine Urobilinogen 3 mg/dL (Negative) H Urine Leukocyte Esterase Negative /uL (Negative) Urine RBC 2 /hpf (0 - 4) Urine Microscopic WBC 3 /HPF (0-5) Urine Squamous Epithelial Cells None seen /hpf (<5) Urine Bacteria None seen /hpf (None Seen) Urine Glucose Normal mg/dL (Normal) Microbiology Microbiology Date/Time Source Procedure Growth Status 11/10/24 15:20 Blood Blood Culture - Preliminary NO GROWTH AFTER 24 HOURS OF INCUBATION. Resulted 11/08/24 18:06 Voided Urine Urine Culture - Final Complete Labs and/or images reviewed: Labs reviewed by me, Image(s) reviewed by me Assessment/Plan Assessment/Plan Impression: -sepsis with Gram-negative rods in the blood -complicated cystitis -pleuritic type of chest pain -sleep apnea -acute on chronic hypoxic respiratory failure Plan: Events: No events overnight. Repeat UA reveals bacteria has cleared. No noted RBC as reported complaints by patient. -deescalate to p.o. Levaquin. -blood positive for E coli. Repeat blood culture currently pending. Patient remains afebrile -PUD prophylaxis -pain management -repeat labs in a.m. -reassess for discharge in a.m. Total time spent with patient discussing and formulating plan of care: 35 minutes. This medical document was created using an electronic medical record system with [employer] dictation system. Although this document has been carefully reviewed, there may still be some phonetic and typographical errors. These areas are purely typographical due to imperfections of the software programs, and do not reflect any compromise in the patient's medical care. Plan discussed with: Patient, Other (rn) My Orders Orders - FELA LUDWIG NP Procedure Category Date Status Time Complete Blood Count LAB 11/12/24 Verified 04:00 Comprehensive LAB 11/12/24 Verified Metabolic Panel 04:00 Date of Service: Nov 11, 2024 Billing Provider: FELA LUDWIG NP Common Visit Codes: [id number] INP/OBS CARE(HIGH) FELA LUDWIG [employer]ATE Nov 11, 2024 15:39
[2024-11-12 05:00] VITALS: BP 132/83; PULSE 76; RESP 18; TEMP 97.7; O2SAT 91
[2024-11-12 06:17] LABS: Hematocrit 40.5 % (36.0-46.0); Hemoglobin 14.0 g/dL (12.2-16.2); Mean Corpuscular Hemoglobin 31.1 pg (28.0-32.0); Mean Corpuscular Volume 90.3 fL (80.0-100.0); Nucleated Red Blood Cells % 0.1 %
[2024-11-12 06:49] LABS: Alanine Aminotransferase 14 U/L (7-40); Albumin 3.7 g/dL (3.2-4.8); Alkaline Phosphatase 85 U/L (46-116); Anion Gap 9 (5-15); BUN/Creatinine Ratio 18.5 (10.0-20.0); Blood Urea Nitrogen 10 mg/dL (9-23); Calcium 9.7 mg/dL (8.7-10.4); Carbon Dioxide 29 mmol/L (20-31); Chloride 103 mmol/L (98-107); Glucose 87 mg/dL (74-106); Sodium 141 mmol/L (136-145); Total Protein 6.3 g/dL (5.7-8.2)
[2024-11-12 06:50] LABS: Bilirubin, Total 0.3 mg/dL (0.2-1.0); Potassium 3.3 mmol/L (3.5-5.1)
[2024-11-12 08:00] VITALS: PULSE 71; RESP 19; O2SAT 98
[2024-11-12 09:00] VITALS: BP 131/75; PULSE 71; RESP 17; TEMP 97.9; O2SAT 98
[2024-11-12] MEDS: levoFLOXacin 500 MG TAB PO SCH (10:52)
[2024-11-12 12:45] VITALS: BP 126/86; PULSE 84; RESP 17; TEMP 98.2; O2SAT 96
[2024-11-12] MEDS ORDERED: CEFD300C2 PO (12:54)
[2024-11-12] MEDS ORDERED: MELA3TAB27 PO (12:54)
[2024-11-12] MEDS: POTASSIUM CHL 10 Meq TABLET PO ONE (13:18)
--- NOTE | 2024-11-12 13:27 | DVHDS2 ---
Discharge Summary Date of Admission Nov 08, 2024 at 19:53 Date of Discharge: Nov 12, 2024 Admitting Diagnosis Acute cystitis Labs/Diagnostic Data: Laboratory Results Test 11/12/24 05:45 11/11/24 08:07 11/10/24 15:57 11/08/24 18:30 White Blood Count 4.7 10^3/uL (4.4-10.8) Red Blood Count 4.49 10^6/uL (4.0-5.20) Hemoglobin 14.0 g/dL (12.2-16.2) Hematocrit 40.5 % (36.0-46.0) Mean Corpuscular Volume 90.3 fL (80.0-100.0) Mean Corpuscular Hemoglobin 31.1 pg (28.0-32.0) Mean Corpuscular Hemoglobin Concent 34.5 g/dL (32.0-36.0) Red Cell Distribution Width 13.5 % (11.8-14.3) Platelet Count 204 10^3/uL (140-450) Mean Platelet Volume 9.1 fL (6.9-10.8) Neutrophils (%) (Auto) 60.4 % (37.0-80.0) Lymphocytes (%) (Auto) 25.5 % (10.0-50.0) Monocytes (%) (Auto) 9.0 % (0.0-12.0) Eosinophils (%) (Auto) 4.2 % (0.0-7.0) Basophils (%) (Auto) 0.9 % (0.0-2.0) Neutrophils # (Auto) 2.8 10 ^3/uL (1.6-8.6) Lymphocytes # (Auto) 1.2 10 ^3/uL (0.4-5.4) Monocytes # (Auto) 0.4 10 ^3/uL (0-1.3) Eosinophils # (Auto) 0.2 10 ^3/uL (0-0.8) Basophils # (Auto) 0 10 ^3/uL (0-0.2) Nucleated Red Blood Cells 0.1 % Sodium Level 141 mmol/L (136-145) Potassium Level 3.3 mmol/L (3.5-5.1) Chloride Level 103 mmol/L (98-107) Carbon Dioxide Level 29 mmol/L (20-31) Anion Gap 9 (5-15) Blood Urea Nitrogen 10 mg/dL (9-23) Creatinine 0.54 mg/dL (0.550-1.02) Glomerular Filtration Rate Calc 95 mL/min (>90) BUN/Creatinine Ratio 18.5 (10.0-20.0) Serum Glucose 87 mg/dL (74-106) Calcium Level 9.7 mg/dL (8.7-10.4) Total Bilirubin 0.3 mg/dL (0.2-1.0) Aspartate Amino Transferase (AST) 20 U/L (13-40) Alanine Aminotransferase (ALT) 14 U/L (7-40) Alkaline Phosphatase 85 U/L (46-116) Total Protein 6.3 g/dL (5.7-8.2) Albumin 3.7 g/dL (3.2-4.8) Magnesium Level 1.9 mg/dL (1.6-2.6) Urine Color Dark-yellow (Yellow) Urine Clarity Clear (Clear) Urine pH 6.5 (5.0-9.0) Urine Specific [place] 1.009 (1.001-1.035) Urine Protein Negative (Negative) Urine Ketones Negative (Negative) Urine Blood Negative /uL (Negative) Urine Nitrite 1+ (Negative) Urine Bilirubin 1+ (Negative) Urine Urobilinogen 3 mg/dL (Negative) Urine Leukocyte Esterase Negative /uL (Negative) Urine RBC 2 /hpf (0 - 4) Urine Microscopic WBC 3 /HPF (0-5) Urine Squamous Epithelial Cells None seen /hpf (<5) Urine Bacteria None seen /hpf (None Seen) Urine Glucose Normal mg/dL (Normal) Lactic Acid Level 1.5 mmol/L (0.4-2.0) Thyroid Stimulating Hormone (TSH) 3.68 uIU/mL (0.55-4.78) Test 11/08/24 18:06 Urine WBC Clumps Present /hpf (None Seen) Urine Mucus Few (None Seen) Other Laboratory Tests 11/12/24 05:45 Brief Hx & Hospital Course: History of Present Illness 79-year-old female presents for evaluation of lower abdominal pain. Patient reports a three day history of developing lower abdominal pain with associated dysuria and chills. She also reports episodes of nausea without emesis. No other acute complaints reported. Course of hospitalization: Patient was found to be positive for E coli in the blood. Urine culture found to be contaminated. Patient was continue on IV Rocephin with her white blood cell count normalizing. Patient had repeat blood culture without any growth for 48 hours. Patient is now ambulating, tolerating oral intake, with improvement with her suprapubic pain. Patient has also been afebrile. Noted to have hypokalemia which was treated on multiple occasions. Patient will be discharged home with cefdinir 300 mg p.o. b.i.d. for additional seven days. She is instructed to follow up with her PCP in 1-2 weeks. All questions answered. Physical examination General: Alert and Oriented x3. No acute distress. Well-nourished. Eyes: EOMI. Anicteric. HENT: Moist mucous membranes. Lungs: Clear to auscultation bilaterally. No accessory muscle use. Cardiovascular: Regular rate and rhythm. No murmur. No JVD. Abdomen: Soft, non-tender and non-distended. No palpable masses. Extremities: No edema. Non-tender. Skin: No rashes or lesions. Warm. Neurologic: No focal neurological deficits. CN II-XII grossly intact, but not individually tested. Psychiatric: Cooperative. Appropriate mood and affect. Total time spent with patient discussing and formulating plan of care: 35 minutes. This medical document was created using an electronic medical record system with [employer] dictation system. Although this document has been carefully reviewed, there may still be some phonetic and typographical errors. These areas are purely typographical due to imperfections of the software programs, and do not reflect any compromise in the patient's medical care. Condition at Discharge: Fair Final Diagnosis/Problems List Sepsis secondary to E coli Secondary diagnosis: -complicated cystitis -pleuritic type of chest pain -sleep apnea -acute on chronic hypoxic respiratory failure Discharge Disposition: Home Discharge Instruct/Medications Diet: Regular Activity: No Restrictions, As Tolerated Follow Up/Referral: PCP in 1-2 weeks or DC clinic in 1 week Medications: Cefdinir 300mg po bid x 7 days Scheduled Cefdinir (Cefdinir), 1 CAP PO BID Melatonin (Kp Melatonin), 1 TAB PO QPM 36 Discharge Statement: "Patient was advised to return to the ER or call 911 if any headaches, dizziness, shortness of breath, chest pain, abdominal pain, bleeding, fevers, or worsening of medical condition. Patient was counseled about treatment plan, medications, possible side effects, patientverbalized understanding. All questions were answered to the best of my ability. This discharge took greater then 30 minutes in planning, reviewing documentation, counseling the patient, and discussing with other team members." ASSESSMENT ASSESSMENT Assessment Sepsis secondary to E coli Date of Service: Nov 12, 2024 Billing Provider: FELA LUDWIG NP Common Visit Codes: [id number] DISCH DAY >30min FELA LUDWIG NP Nov 12, 2024 13:27
[2024-11-12 13:33] VITALS: BP 126/86; PULSE 84; RESP 17; TEMP 36.8; O2SAT 96
== END 2024-11-12 15:45 | disposition home or self-care (01) | DRG 871 ==
LOC: ER 16:21 → OVERFLOW 19:53 → WEST WING 23:24
PROVIDERS: ADMIT Nurse Practitioner Acute Care; ATTEND Nurse Practitioner Acute Care
DX: A41.51 Sepsis due to Escherichia coli [E. coli] (principal); J96.21 Acute and chronic respiratory failure with hypoxia; N30.00 Acute cystitis without hematuria; E86.0 Dehydration; G47.30 Sleep apnea, unspecified; E87.6 Hypokalemia; Z96.649 Presence of unspecified artificial hip joint; Z90.710 Acquired absence of both cervix and uterus; Z79.899 Other long term (current) drug therapy; K80.20 Calculus of gallbladder without cholecystitis without obstruction
CPT/HCPCS: 36415; 71046; 74176; 80048; 80053; 81001; 83605; 83735; 84443; 85025; 87040; 87077; 87086; 87186; 96365; 96375; 99291; G0378; J2003; J2405

== ENCOUNTER 2024-12-17 07:14 | Emergency (ER) | payer MEDICARE, MEDICAID ==
[~2024-12-17] VITALS: Ht 162.6 cm; Wt 65.2 kg
[~2024-12-17 07:14] MED LIST changes: -ACET500T58 PO; +CEFD300C2 PO; -CEPH500T PO; +MELA3TAB27 PO
--- NOTE | 2024-12-17 07:42 | ED.PDOC ---
History of Present Illness HPI Comments This is a 79 year old female presenting to the ED with chief complaint of flu- like illness and fall injury. Patient reports that she has been experiencing nasal congestion/green discharge with associated bilateral temporal headache, dizziness, and blurred vision for the past month since moving into her new home. 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 Patient states her dizziness caused her to trip and fall in her bathtub a week ago, causing pain to her posterior head posterior neck and lower back pain area. Patient notes that her pain is a 7-12/09 and has been taking Meloxicam 30mg for pain relief along with Ciprofloxacin prescribed by her doctor. Patient denies any sick contacts. Denies fevers chills night sweats unintentional weight loss Denies persistent chest pain, shortness of breath, leg swelling Denies history of asthma nor any breathing conditions Denies history of pneumonia Denies recent international travel Denies persistent nausea Denies vomiting Denies taking any blood thinner medication Denies focal loss of strength/sensation or changes in speech Chief Complaint: Flu like Time Seen by MD: 07:25 Reviewed Notes: Nurses Notes, Medications, Allergies Allergies: Coded Allergies: NO KNOWN ALLERGIES (Unverified , 07/12/22) Home Meds Active Scripts Cetirizine Hcl (Zyrtec Allergy) 10 Mg Tab, 10 MG PO DAILY for 30 Days, #30 TAB 0 Refills Prov:DENNYS CARDENAS NP 12/17/24 Fluticasone Propionate (Nasal) (Flonase Allergy Relief) 50 Mcg/Act Spr, 50 MCG NA DAILY for 30 Days, #1 BOTTLE 0 Refills Prov:DENNYS CARDENAS NP 12/17/24 Melatonin (KP MELATONIN) 3 Mg Tab, 1 TAB PO QPM, #30 TAB 1 Refill Prov:FELA LUDWIG PSYCHOSOCIAL REHABILITATION COUNSELOR 11/12/24 Cefdinir (Cefdinir) 300 Mg Cap, 1 CAP PO BID for 7 Days, #14 CAP Prov:FELA LUDWIG PSYCHOSOCIAL REHABILITATION COUNSELOR 11/12/24 Information Source: Patient Mode of Arrival: Ambulatory Severity: Mild Timing: Days Duration: Since onset Prehospital treatment: None Past Medical History PAST MEDICAL HISTORY: Denies Surgical History: Hernia Repair, Hysterectomy DEVELOPMENTAL SPECIALIST History: No Pertinent DEVELOPMENTAL SPECIALIST History Family History Family History: Reviewed,noncontributory to illness Social History Smoker: Non-Smoker Alcohol: Denies ETOH Use Drugs: Denies Drug Use Lives In: Home Constitutional: denies: chills, diaphoresis, fatigue, fever, malaise, sweats, w eakness, others EENTM: reports: blurred vision, nasal discharge, nose congestion; denies: double vision, ear bleeding, ear discharge, ear drainage, ear pain, ear ringing, eye pain, eye redness, hearing loss, mouth pain, mouth swelling, nose bleeding, nose pain, photophobia, tearing, throat pain, throat swelling, voice changes, others Respiratory: denies: cough, hemoptysis, orthopnea, SOB at rest, shortness of breath, SOB with excertion, stridor, wheezing, others Cardiovascular: denies: chest pain, dizzy spells, diaphoresis, Dyspnea on exertion, edema, irregular heart beat, left arm pain, lightheadedness, palpitations, PND, syncope, others Gastrointestinal: denies: abdomen distended, abdominal pain, blood streaked bowels, constipated, diarrhea, dysphagia, difficulty swallowing, hematemesis, melena, nausea, poor appetite, poor fluid intake, rectal bleeding, rectal pain, vomiting, others Genitourinary: denies: abnormal vagina bleeding, burning, dyspareunia, dysuria, flank pain, frequency, hematuria, incontinence, pain, , vagina discharge, urgency, others Neurological: reports: dizziness, headache; denies: fainting, left sided numbness, left sided weakness, numbness, paresthesia, pre-existing deficit, right sided numbness, right sided weakness, seizure, speech problems, tingling, tremors, weakness, others Musculoskeletal: reports: back pain, neck pain; denies: gout, joint pain, joint swelling, muscle pain, muscle stiffness, others Integumetry: denies: bruises, change in color, change in hair/nails, dryness, laceration, lesions, lumps, rash, wounds, others Allergic/Immunocompromised: denies: Difficulty Healing, Frequent Infections, Hives, Itching, others Hematologic/Lymphatic: denies: anemia, blood clots, easy bleeding, easy bruising, swollen glands, others Endocrine: denies: excessive hunger, excessive sweating, excessive thirst, excessive urination, flushing, intolerance to cold, intolerance to heat, unexplained weight gain, unexplained weight loss, others Psychiatric: denies: anxiety, bipolar disorder, depression, hopeless, panic disorder, schizophrenia, sleepless, suicidal, others All Other Systems: Reviewed and Negative Physical Exam General Appearance: No Apparent Distress, Normal HEENT: Head, Normal ENT Inspection, Pharynx Normal, TMs Normal Neck: Full Range of Motion, Non-Tender, Normal, Normal Inspection Respiratory: Chest Non-Tender, Lungs Clear, No Accessory Muscle Use, No Respiratory Distress, Normal Breath Sounds Cardiovascular: No Edema, No JVD, No Murmur, No Gallop, Normal Peripheral Pulses, Regular Rate/Rhythm Breast Exam: Deferred Gastrointestinal: No Organomegaly, Non Tender, No Pulsatile Mass, Normal Bowel Sounds, Soft Genitalia: Deferred Pelvic: Deferred Rectal: Deferred Extremities: No calf tenderness, Normal capillary refill, Normal inspection, Normal range of motion, Non-tender, No pedal edema Musculoskeletal : Apperance: Normal Neurologic: Alert, No Motor Deficits, Normal Affect, Normal Mood, No Sensory Deficits Cerebellar Function: Normal Reflexes: Normal Skin: Dry, Normal Color, Warm Lymphatic: No Adenopathy Was a procedure done? Was a procedure done?: No Differential Dx Considerations may include: Closed head injury, subdural hematoma, cervical fracture, sinusitis X-Ray, Labs, Meds, VS Vital Signs Date Time Temp Pulse Resp B/P (MAP) Pulse Ox O2 Delivery O2 Flow Rate FiO2 12/17/24 09:43 98.8 78 18 138/68 (91) 98 98.8 12/17/24 09:43 68 18 98 Room Air 12/17/24 07:17 98.2 65 18 159/76 96 98.2 Lab Test 12/17/24 08:10 12/17/24 07:28 Range/Units White Blood Count 6.2 4.4-10.8 10^3/uL Red Blood Count 4.27 4.0-5.20 10^6/uL Hemoglobin 13.3 12.2-16.2 g/dL Hematocrit 38.8 36.0-46.0 % Mean Corpuscular Volume 90.8 80.0-100.0 fL Mean Corpuscular Hemoglobin 31.1 28.0-32.0 pg Mean Corpuscular Hemoglobin Concent 34.3 32.0-36.0 g/dL Red Cell Distribution Width 14.6 H 11.8-14.3 % Platelet Count 211 140-450 10^3/uL Mean Platelet Volume 8.9 6.9-10.8 fL Neutrophils (%) (Auto) 66.0 37.0-80.0 % Lymphocytes (%) (Auto) 24.7 10.0-50.0 % Monocytes (%) (Auto) 5.6 0.0-12.0 % Eosinophils (%) (Auto) 3.1 0.0-7.0 % Basophils (%) (Auto) 0.6 0.0-2.0 % Neutrophils # (Auto) 4.1 1.6-8.6 10 ^3/uL Lymphocytes # (Auto) 1.5 0.4-5.4 10 ^3/uL Monocytes # (Auto) 0.3 0-1.3 10 ^3/uL Eosinophils # (Auto) 0.2 0-0.8 10 ^3/uL Basophils # (Auto) 0 0-0.2 10 ^3/uL Nucleated Red Blood Cells 0.0 % Sodium Level 143 136-145 mmol/L Potassium Level 3.5 3.5-5.1 mmol/L Chloride Level 106 98-107 mmol/L Carbon Dioxide Level 28 20-31 mmol/L Anion Gap 9 5-15 Blood Urea Nitrogen 11 9-23 mg/dL Creatinine 0.56 0.550-1.02 mg/dL Glomerular Filtration Rate Calc 94 >90 mL/min BUN/Creatinine Ratio 19.6 10.0-20.0 Serum Glucose 98 74-106 mg/dL Calcium Level 9.0 8.7-10.4 mg/dL Urine Color Colorless Yellow Urine Clarity Clear Clear Urine pH 7.0 5.0-9.0 Urine Specific Morris 1.007 1.001-1.035 Urine Protein Negative Negative Urine Ketones Negative Negative Urine Blood Negative Negative /uL Urine Nitrite Negative Negative Urine Bilirubin Negative Negative Urine Urobilinogen Normal Negative mg/dL Urine Leukocyte Esterase Trace Negative /uL Urine RBC <1 0 - 4 /hpf Urine Microscopic WBC 1 0-5 /HPF Urine Squamous Epithelial Cells Few <5 /hpf Urine Bacteria Few H None Seen /hpf Urine Glucose Normal Normal mg/dL [facility] [address] [place], [place] [id number] Ph: [phone] DIAGNOSTIC IMAGING Diagnostic Imaging Report : [id number] Signed PATIENT: NU MARTINEZCT: [id number] UNIT: [id number] 2 : 1945 LOC: ER ROOM / BED: / AGE / SEX: 79 / F ADM STATUS: REG ER SERVICE 2 ORDERING PHYSICIAN: DENNYS CARDENAS NP PROCEDURE(s): LUMB2 - LUMBAR SPINE 3 VIEW REASON: Fall ORDER NUMBER(s): [id number], ACCESSION NUMBER(s): [id number] INDICATION: Fall TECHNIQUE: Frontal and lateral views of the lumbar spine were obtained. COMPARISON: None FINDINGS: Postsurgical changes at L5-S1 with 18 mm anterolisthesis of L5 on S1. There are no fractures or subluxations. Vertebral body heights and disc spaces are well maintained. Paravertebral soft tissues are unremarkable. IMPRESSION: 1. Of the visualized spine, there is no evidence for fracture or subluxation. Postsurgical changes at L5-S1 with 18 mm anterolisthesis of L5 on S1. ATED BY: JEFFERY MILES MD DICTATED DATE/TIME: 12/17/24811 SIGNED BY: JEFFERY MILES MD SIGNED DATE/TIME: 12/17/24811 CC: [place] [id number] Ph: [phone] DIAGNOSTIC IMAGING Diagnostic Imaging Report : [id number] Signed PATIENT: NU MARTINEZCT: [id number] UNIT: [id number] 2 : 1945 LOC: ER ROOM / BED: / AGE / SEX: 79 / F ADM STATUS: REG ER SERVICE 2 ORDERING PHYSICIAN: DENNYS CARDENAS NP PROCEDURE(s): HWOCT - HEAD WITHOUT CONTRAST REASON: Fall ORDER NUMBER(s): [id number], ACCESSION NUMBER(s): [id number] EXAM: CT HEAD WITHOUT CONTRAST INDICATION: Fall TECHNIQUE: CT of the head without intravenous contrast. Radiation Dose : 1. Head: CT Dose: CTDI volume is mGy. Dose-length product is mGy*cm The dose indicators for CT are the volume Computed Tomography (CT) Dose Index (CTDIvol) and the Dose Length Product (DLP), and are measured in units of mGy and mGy-cm, respectively. These indicators are not patient dose, but values generated from the CT scanner acquisition factors. The report includes radiation exposure data for exposures received during this examination. COMPARISON: None FINDINGS: There is no evidence of acute intracranial hemorrhage, extra-axial collection, mass effect, midline shift, herniation or hydrocephalus. The ventricles, sulci and cisterns are age appropriate. The gunter-white differentiation is intact. Patchy periventricular and subcortical white matter hypoattenuation is nonspecific but may be related to small vessel ischemic disease. Diffuse mucosal sinus disease. The mastoid air cells are clear. The surrounding soft tissues and osseous structures are unremarkable. Hyperosto sis frontalis interna. IMPRESSION: 1. No acute intracranial abnormality. Radiation optimization: All CT scans at this facility use at least one of these dose optimization techniques: automated exposure control mA and/or kV adjustment per patient size (includes targeted exams where dose is matched to clinical indication) or iterative reconstruction. ATED BY: ROSALIO JENKINS MD DICTATED DATE/TIME: 12/17/24827 SIGNED BY: ROSALIO JENKINS MD SIGNED DATE/TIME: 12/17/24827 CC: [place] [id number] Ph: [phone] DIAGNOSTIC IMAGING Diagnostic Imaging Report : [id number] Signed PATIENT: NU MARTINEZCT: [id number] UNIT: [id number] 2 : 1945 LOC: ER ROOM / BED: / AGE / SEX: 79 / F ADM STATUS: REG ER SERVICE ORDERING PHYSICIAN: DENNYS CARDENAS NP PROCEDURE(s): CS2 - CERVICAL WITHOUT CONTRAST REASON: Fall ORDER NUMBER(s): [id number], ACCESSION NUMBER(s): [id number] EXAM: CT CERVICAL WITHOUT CONTRAST HISTORY: Fall, trauma, pain COMPARISON: None CTDIvol 61.36 mGy, DLP 1671.96 mGy*cm. TECHNIQUE: Multiple axial CT images of the spine were obtained using bone algorithm. Axial and coronal reformatting was done. Bone and soft tissue windows were reviewed. FINDINGS: No evidence of definite acute fracture, spinal dislocation, or significant appearing acute subluxation is seen. Multilevel degenerative changes of the spine. Cervical spinal fixation hardware is present at C5 C6 and C6-C7. IMPRESSION: No definite CT evidence of acute fracture or dislocation of the bony cervical spine. ATED BY: ISAEL HOU MD DICTATED DATE/TIME: 12/17/24829 SIGNED BY: ISAEL HOU MD SIGNED DATE/TIME: 12/17/24829 CC: X-Ray, Labs, Meds, VS Comment This is a 79 year old female presenting to the ED with chief complaint of flu- like illness and fall injury. Patient arrives alert and oriented, ABC's intact, afebrile, vital signs stable, saturating well in room air CBC was ordered to exclude anemia, blood loss, or infection. BMP was ordered to exclude electrolyte abnormalities, renal failure, dehydration, hyperglycemia Urinalysis was ordered to rule out UTI or hematuria. Diagnostic imaging ordered by me and results interpreted by radiology : CT Head, CT C-Spine, L-Spine XR The following differential diagnoses were considered for this patient; subdural hematoma, subarachnoid hemorrhage, epidural hematoma, intraparenchymal bleed, herniation, skull fracture. The patient had a computed tomography of their head without any evidence of acute intracranial abnormality as per radiology. The patient is neurologically intact by exam and is able to ambulate without difficulty. A complete examination does not reveal any other related injury at this time. The patient is not currently utilizing any anticoagulants. The patient is advised to use tylenol as needed for pain. The patient is instructed to follow up their primary care physician as needed or return to ER if vomiting or worsening headache occurs. The patient was counseled in regards to the diagnosis and management of the condition and verbalized understanding of this. Patient is stable for discharge at this time. External notes reviewed. Test results and diagnostic imaging interpreted. All diagnostic findings, discharge care, education and instructions provided Follow-up with PCP in 2 to 3 days Patient verbalized understanding and agreed to treatment plan Vital signs stable, afebrile, no acute distress noted Patient ambulatory with strong steady gait Advised to return precautions for any new or worsening symptoms, return to ER immediately for re-evaluation Patient is aware that the purpose of this visit was for an acute medical emergency requiring emergent stabilization. Chronic conditions, including malignancies have not been ruled out. Patient is instructed to follow up with PCP as directed and discharge instructions for continued care and workup. If unable to arrange follow-up, patient is to return to the emergency department for reassessment. Patient (parent or legal guardian if applicable) was given verbal and written discharge instructions and acknowledges understanding. Additional MDM Review of External, Non-ED records: External records reviewed. Discussion with independent historian (EMS, family) history obtained from the patient/parents (if applicable) at bedside Chronic conditions affecting care: None Social determinants of health affecting care: None Consideration of admission (observation or admission): I considered escalation of care to admission for this patient, however given the reassuring workup, the patient is safe for outpatient management. Discussion with the Radiology: No Time of 1ST Reevaluation: 08:00 Reevaluation 1ST: Unchanged Patient Education/Counseling: Diagnosis, Treatment Family Education/Counseling: No Family Present SEPSIS Sepsis Screen Date sepsis recognized/suspect: Dec 17, 2024 Time Sepsis recognized/suspect: 716 Recent Procedure: No On Antibiotic Therapy: No Respiratory Rate >20: No Heart Rate >90: No Temp<36 C (96.8 F) or >38.3 C: No SBP <90 or MAP <65 mmHG: No New Acute Mental Status Change: No Is the patient on CPAP, BIPAP,: No Physician Orders Lumbar Spine 3 View (12/17/24 07:33) Head Without Contrast (12/17/24 07:33) Cervical Without Contrast (12/17/24 07:33) Vital Signs Date Time Temp Pulse Resp B/P (MAP) Pulse Ox O2 Delivery O2 Flow Rate FiO2 12/17/24 09:43 98.8 78 18 138/68 (91) 98 98.8 12/17/24 09:43 68 18 98 Room Air 12/17/24 07:17 98.2 65 18 159/76 96 98.2 Laboratory Tests Test 12/17/24 08:10 White Blood Count 6.2 10^3/uL (4.4-10.8) Departure 1 Departure Time of Disposition: 08:59 Impression: Primary Impression: Blunt head trauma Qualified Codes: S09.8XXA - Other specified injuries of head, initial encounter Additional Impressions: Neck pain Back pain Qualified Codes: M54.50 - Low back pain, unspecified Rhinorrhea Disposition: HOME / SELF CARE / HOMELESS Condition: Stable e-Prescriptions Cetirizine Hcl (Zyrtec Allergy) 10 Mg Tab 10 MG PO DAILY for 30 Days, #30 TAB 0 Refills Prov: DENNYS CARDENAS NP 12/17/24 Fluticasone Propionate (Nasal) (Flonase Allergy Relief) 50 Mcg/Act Spr 50 MCG NA DAILY for 30 Days, #1 BOTTLE 0 Refills Prov: DENNYS CARDENAS NP 12/17/24 Critical Care Note Critical Care Time?: No Stability Stability form required: No Heart Score Heart Score: Heart Score Response (Comments) Value History N/A 0 EKG N/A 0 Age N/A 0 Risk Factors N/A 0 Troponin N/A 0 Total 0 I personally scribed for DENNYS CARDENAS NP ([email or web address]) on 12/17/24 at 07:42. Electronically submitted by Filiberto Lehman ([employer]). I personally scribed for DENNYS CARDENAS NP ([email or web address]) on 12/17/24 at 08:26. Electronically submitted by Filiberto Lehman ([employer]). I personally scribed for DENNYS CARDENAS NP ([email or web address]) on 12/17/24 at 08:38. Electronically submitted by Filiberto Lehman ([employer]). DENNYS CARDENAS NP Dec 17, 2024 07:42
[2024-12-17 08:08] LABS: Urine Protein, UAD Negative (Negative)
--- NOTE | 2024-12-17 08:15 | DVH ---
INDICATION: Fall TECHNIQUE: Frontal and lateral views of the lumbar spine were obtained. COMPARISON: None FINDINGS: Postsurgical changes at L5-S1 with 18 mm anterolisthesis of L5 on S1. There are no fractu res or subluxations. Vertebral body heights and disc spaces are well maintained. Paravertebral soft t issues are unremarkable. IMPRESSION: 1. Of the visualized spine, there is no evidence for fracture or subluxation. Postsurgical changes at L5-S1 with 18 mm anterolisthesis of L5 on S1.
[2024-12-17 08:26] LABS: Hematocrit 38.8 % (36.0-46.0); Hemoglobin 13.3 g/dL (12.2-16.2); Mean Corpuscular Hemoglobin 31.1 pg (28.0-32.0); Mean Corpuscular Volume 90.8 fL (80.0-100.0); Nucleated Red Blood Cells % 0.0 %
[2024-12-17 08:28] LABS: Chloride 106 mmol/L (98-107); Sodium 143 mmol/L (136-145)
[2024-12-17 08:29] LABS: Anion Gap 9 (5-15); Calcium 9.0 mg/dL (8.7-10.4); Carbon Dioxide 28 mmol/L (20-31)
--- NOTE | 2024-12-17 08:30 | DVH ---
EXAM: CT HEAD WITHOUT CONTRAST INDICATION: Fall TECHNIQUE: CT of the head without intravenous contrast. Radiation Dose : 1. Head: CT Dose: CTDI volume is mGy. Dose-length product is mGy*cm The dose indicators for CT are the volume Computed Tomography (CT) Dose Index (CTDIvol) and the Dose Length Product (DLP), and are measured in units of mGy and mGy-cm, respectively. These indicators are not patient dose, but values generated from the CT scanner acquisition factors. The report includes radiation exposure data for exposures received during this examination. COMPARISON: None FINDINGS: There is no evidence of acute intracranial hemorrhage, extra-axial collection, mass effect, midline s hift, herniation or hydrocephalus. The ventricles, sulci and cisterns are age appropriate. The gunter-white differentiation is intact. Patchy periventricular and subcortical white matter hypoattenuation is nonspecific but may be related to small vessel ischemic disease. Diffuse mucosal sinus disease. The mastoid air cells are clear. The surrounding soft tissues and osseous structures are unremarkable. Hyperostosis frontalis interna. IMPRESSION: 1. No acute intracranial abnormality. Radiation optimization: All CT scans at this facility use at least one of these dose optimization jose hniques: automated exposure control mA and/or kV adjustment per patient size (includes targeted exam s where dose is matched to clinical indication) or iterative reconstruction.
--- NOTE | 2024-12-17 08:32 | DVH ---
EXAM: CT CERVICAL WITHOUT CONTRAST HISTORY: Fall, trauma, pain COMPARISON: None CTDIvol 61.36 mGy, DLP 1671.96 mGy*cm. TECHNIQUE: Multiple axial CT images of the spine were obtained using bone algorithm. Axial and knight l reformatting was done. Bone and soft tissue windows were reviewed. FINDINGS: No evidence of definite acute fracture, spinal dislocation, or significant appearing acute subluxatio n is seen. Multilevel degenerative changes of the spine. Cervical spinal fixation hardware is present at C5 C6 a nd C6-C7. IMPRESSION: No definite CT evidence of acute fracture or dislocation of the bony cervical spine.
[2024-12-17 08:34] LABS: BUN/Creatinine Ratio 19.6 (10.0-20.0); Blood Urea Nitrogen 11 mg/dL (9-23); Glucose 98 mg/dL (74-106); Potassium 3.5 mmol/L (3.5-5.1)
[2024-12-17] MEDS ORDERED: CETI-176 PO (09:01)
[2024-12-17] MEDS ORDERED: FLUT1SPR5 (09:01)
[2024-12-17 09:43] VITALS: BP 138/68; PULSE 68; RESP 18; TEMP 98.8; O2SAT 98
== END 2024-12-17 09:46 | disposition home or self-care (01) ==
LOC: ER 07:14
DX: S06.5XAA Traumatic subdural hemorrhage with loss of consciousness status unknown, initial encounter (principal); M54.50 Low back pain, unspecified; M54.2 Cervicalgia; Z90.710 Acquired absence of both cervix and uterus; Z98.890 Other specified postprocedural states; W18.39XA Other fall on same level, initial encounter; Y93.89 Activity, other specified; Y92.89 Other specified places as the place of occurrence of the external cause; Y99.8 Other external cause status
CPT/HCPCS: 36415; 70450; 72100; 72125; 80048; 81001; 85025

== ENCOUNTER 2025-04-07 19:36 | Emergency (ER) | payer MEDICARE, MEDICAID ==
[~2025-04-07] VITALS: Ht 157.5 cm; Wt 66.2 kg
[~2025-04-07 19:36] MED LIST changes: +CETI-176 PO; +FLUT1SPR5
--- NOTE | 2025-04-07 20:54 | ED.PDOC ---
Eye-HPI HPI Comments This is a 80 year old female presenting to the ED with chief complaint of eye pain. Patient reports that she had been cleaning her garage about an hour ago when she had cleaned a box of wet diapers. Patient relays that after she had done this, she began to experience bilateral eye pain and irritation. Patient denies any blurred vision, vision loss, photophobia, headache, dizziness, or N/V. 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/25 Cetirizine Hcl (Zyrtec Allergy) 10 Mg Tab, 10 MG PO DAILY for 30 Days, #30 TAB 0 Refills Prov:DENNYS CARDENAS NP 12/17/24 Fluticasone Propionate (Nasal) (Flonase Allergy Relief) 50 Mcg/Act Spr, 50 MCG NA DAILY for 30 Days, #1 BOTTLE 0 Refills Prov:DENNYS CARDENAS NP 12/17/24 Melatonin (KP MELATONIN) 3 Mg Tab, 1 TAB PO QPM, #30 TAB 1 Refill Prov:FELA LUDWIG NP 11/12/24 Cefdinir (Cefdinir) 300 Mg Cap, 1 CAP PO BID for 7 Days, #14 CAP Prov:FELA LUDWIG NP 11/12/24 Information Source: Patient Mode of Arrival: Ambulatory Timing: Hours Duration: Since onset Prehospital treatment: None Quality: Pain Past Medical History PAST MEDICAL HISTORY: Denies Surgical History: Hernia Repair, Hysterectomy FAMILY PRESERVATION CASEWORKER History: No Pertinent FAMILY PRESERVATION CASEWORKER History Family History Family History: Reviewed,noncontributory to illness Social History Smoker: Non-Smoker Alcohol: Denies ETOH Use Drugs: Denies Drug Use Lives In: Home Constitutional: denies: chills, diaphoresis, fatigue, fever, malaise, sweats, weakness, others EENTM: reports: eye pain; denies: blurred vision, double vision, ear bleeding, ear discharge, ear drainage, ear pain, ear ringing, eye redness, hearing loss, mouth pain, mouth swelling, nasal discharge, nose bleeding, nose congestion, nose pain, photophobia, tearing, throat pain, throat swelling, voice changes, others Respiratory: denies: cough, hemoptysis, orthopnea, SOB at rest, shortness of breath, SOB with excertion, stridor, wheezing, others Cardiovascular: denies: chest pain, dizzy spells, diaphoresis, Dyspnea on exertion, edema, irregular heart beat, left arm pain, lightheadedness, palpitations, PND, syncope, others Gastrointestinal: denies: abdomen distended, abdominal pain, blood streaked bowels, constipated, diarrhea, dysphagia, difficulty swallowing, hematemesis, melena, nausea, poor appetite, poor fluid intake, rectal bleeding, rectal pain, vomiting, others Genitourinary: denies: abnormal vagina bleeding, burning, dyspareunia, dysuria, flank pain, frequency, hematuria, incontinence, pain, , vagina discharge, urgency, others Neurological: denies: dizziness, fainting, headache, left sided numbness, left sided weakness, numbness, paresthesia, pre-existing deficit, right sided numbness, right sided weakness, seizure, speech problems, tingling, tremors, weakness, others Musculoskeletal: denies: back pain, gout, joint pain, joint swelling, muscle pain, muscle stiffness, neck pain, others Integumetry: denies: bruises, change in color, change in hair/nails, dryness, laceration, lesions, lumps, rash, wounds, others Allergic/Immunocompromised: denies: Difficulty Healing, Frequent Infections, Hives, Itching, others Hematologic/Lymphatic: denies: anemia, blood clots, easy bleeding, easy bruising, swollen glands, others Endocrine: denies: excessive hunger, excessive sweating, excessive thirst, excessive urination, flushing, intolerance to cold, intolerance to heat, unexplained weight gain, unexplained weight loss, others Psychiatric: denies: anxiety, bipolar disorder, depression, hopeless, panic disorder, schizophrenia, sleepless, suicidal, others All Other Systems: Reviewed and Negative Physical Exam General Appearance: No Apparent Distress, Normal HEENT: Pharynx Normal, TMs Normal, Other (Bilateral eyes hyperemia clear drainage obvious foreign body. Both eyes flushed with normal saline.) Neck: Full Range of Motion, Non-Tender Respiratory: Lungs Clear, No Respiratory Distress, Normal Breath Sounds Cardiovascular: No Edema, No JVD, No Murmur, No Gallop, Normal Peripheral Pulses, Regular Rate/Rhythm Breast Exam: Deferred Gastrointestinal: Non Tender, Soft Genitalia: Deferred Pelvic: Deferred Rectal: Deferred Extremities: Normal capillary refill, Non-tender Musculoskeletal : Apperance: Normal Neurologic: Alert, No Motor Deficits, Normal Affect, Normal Mood, No Sensory Deficits Cerebellar Function: Normal Reflexes: NOT DONE Skin: Dry, Normal Color, Warm Lymphatic: No Adenopathy Was a procedure done? Was a procedure done?: Yes Sedation Sedation?: No Informed consent obtained: Yes Foreign Body Removal Foreign body in: Eye Anesthetic: Other (Tetracaine) Prep: Irrigation Procedure: Removed Informed consent obtained: Yes Risks/benefits/alt described: Yes Notes Patient tolerated well no obvious foreign body patient did report moderate improvement after flush EENT DIFF Eye: Conjunctivitis, Allergic, Bacterial, Chlamydial, Viral, Corneal Abrasion, Corneal Lacerations, Corneal Ulceration, Foreign Body-Conjunctiva, Foreign Body- Corneal, Foreign Body-Intraocular, Foreign Body-Lid, Globe Rupture, Hordeolum (stye), Iritis/Uveitis X-Ray, Labs, Meds, VS Vital Signs Date Time Temp Pulse Resp B/P (MAP) Pulse Ox O2 Delivery O2 Flow Rate FiO2 04/07/25 21:34 98.4 64 19 152/81 (104) 97 98.4 04/07/25 21:34 64 19 97 Room Air 04/07/25 19:41 98.4 79 18 159/91 95 98.4 Current Medications Medications (Trade) Dose Ordered Sig/[place]aurus Route Start Time Stop Time Status Last Admin Acetaminophen/ Hydrocodone Bitart ([place] 5/325MG Tab) 1 tab ONCE ONCE PO 04/07/25 21:45 04/07/25 21:46 DC 04/07/25 21:48 Erythromycin 1 applic ONCE ONCE OP 04/07/25 21:45 04/07/25 21:46 DC 04/07/25 21:48 X-Ray, Labs, Meds, VS Comment See procedure note. Likely chemical conjunctivitis script trial of antibiotic drops patient is started here in the ER on erythromycin base advised to stop once she picks up the antibiotic eyedrops tomorrow. With Ophthalmology as necessary ER return precautions given patient indicates understanding and agrees with discharge plan of care. Time of 1ST Reevaluation: 21:50 Reevaluation 1ST: Improved Time of 2ND Reevaluation: 21:44 Reevaluation 2ND: Improved Patient Education/Counseling: Diagnosis, Treatment Family Education/Counseling: No Family Present SEPSIS Sepsis Screen Date sepsis recognized/suspect: Apr 07, 2025 Time Sepsis recognized/suspect: 1929 Recent Procedure: No On Antibiotic Therapy: No Respiratory Rate >20: No Heart Rate >90: No Temp<36 C (96.8 F) or >38.3 C: No SBP <90 or MAP <65 mmHG: No New Acute Mental Status Change: No Is the patient on CPAP, BIPAP,: No Vital Signs Date Time Temp Pulse Resp B/P (MAP) Pulse Ox O2 Delivery O2 Flow Rate FiO2 04/07/25 21:34 98.4 64 19 152/81 (104) 97 98.4 04/07/25 21:34 64 19 97 Room Air 04/07/25 19:41 98.4 79 18 159/91 95 98.4 Medications Medications Dose Ordered Sig/[place] Route Start Time Stop Time Status Last Admin Dose Admin Acetaminophen/ Hydrocodone Bitart 1 tab ONCE ONCE PO 04/07/25 21:45 04/07/25 21:46 DC 04/07/25 21:48 Erythromycin 1 applic ONCE ONCE OP 04/07/25 21:45 04/07/25 21:46 DC 04/07/25 21:48 Departure 1 Departure Time of Disposition: 21:44 Impression: Primary Impression: Chemical conjunctivitis of both eyes Disposition: 01 HOME / SELF CARE / HOMELESS Condition: Stable e-Prescriptions Moxifloxacin Hydrochloride (Moxifloxacin HCl) 0.5 % [place] 1 DROP LEFTEYE TID for 7 Days, #6 ML Prov: GINA LAURENT 04/07/25 Discharged With: Relative Critical Care Note Critical Care Time?: No Stability Stability form required: No Heart Score Heart Score: Heart Score Response (Comments) Value History N/A 0 EKG N/A 0 Age N/A 0 Risk Factors N/A 0 Troponin N/A 0 Total 0 I personally scribed for ER ([email or web address]) on 04/07/25 at 20:54. Electronically submitted by Filiberto Lehman ([email or web address]). ER Apr 07, 2025 20:54 GINA LAURENT Apr 07, 2025 21:48
[2025-04-07 21:34] VITALS: BP 152/81; PULSE 64; RESP 19; TEMP 98.4; O2SAT 97
[2025-04-07] MEDS ORDERED: MOXI0.5S3 LEFTEYE (21:48)
[2025-04-07] MEDS: ERYTHROMY OPTH OINT 5mg/gm 1gm or 3.5gm tube OP ONE (21:48)
[2025-04-07] MEDS: HYDROcodone-ACET 5/325MG TAB PO ONE (21:48)
== END 2025-04-07 22:08 | disposition home or self-care (01) ==
LOC: ER 19:36
DX: H10.213 Acute toxic conjunctivitis, bilateral (principal); Z98.890 Other specified postprocedural states; Z90.710 Acquired absence of both cervix and uterus; Z79.899 Other long term (current) drug therapy